=== PATIENT | female | born 1990 | race Caucasian/White ===

== ENCOUNTER 2020-08-15 19:14 | Emergency (ER) | payer OTHER ==
[2020-08-15 22:10] LABS: HEMOGLOBIN 10.2 gm/dl (12.3-15.3); RED BLOOD COUNT 4.86 M/UL (4.00-5.10); WHITE BLOOD COUNT 11.2 K/UL (4.5-11.0)
[2020-08-15 22:29] LABS: BUN/CREATININE RATIO 24 (0-10)
== END 2020-08-16 | disposition home or self-care (01) ==
LOC: ER1 19:14
PROVIDERS: Emergency Medicine
DX: R10.2 Pelvic and perineal pain (principal)
CPT/HCPCS: 76830; 80053; 81001; 83690; 85025; 99284

== ENCOUNTER → 2021-03-23 | Outpatient (CLI) | payer OTHER ==
[~2021-03-23] MED LIST: HEMOCYTE324 MG PO; IBUPROFEN800 MG PO; LYSTEDA650 MG PO; METFORMIN HCL1000 MG PO; PERCOCET 5/325 T1 EA PO
[2021-03-23 12:43] LABS: HEMOGLOBIN 12.9 gm/dl (12.3-15.3); RED BLOOD COUNT 4.59 M/UL (4.00-5.10); WHITE BLOOD COUNT 7.4 K/UL (4.5-11.0)
== END ==
LOC: OPSV2 03-21 09:00
PROVIDERS: Obstetrics & Gynecology
DX: Z01.812 Encounter for preprocedural laboratory examination (principal); Z20.822 Contact with and (suspected) exposure to COVID-19; N93.9 Abnormal uterine and vaginal bleeding, unspecified
CPT/HCPCS: 36415; 81001; 84702; 85025; U0002

== ENCOUNTER → 2021-03-24 | Day surgery (SDC) | payer OTHER | END | disposition home or self-care (01) | LOC: OR 11:22 | DX: N92.0 Excessive and frequent menstruation with regular cycle (principal); K76.0 Fatty (change of) liver, not elsewhere classified; E06.3 Autoimmune thyroiditis; E28.2 Polycystic ovarian syndrome; Z68.44 Body mass index [BMI] 60.0-69.9, adult; Z20.822 Contact with and (suspected) exposure to COVID-19; Z88.6 Allergy status to analgesic agent; Z87.891 Personal history of nicotine dependence; Z88.1 Allergy status to other antibiotic agents; Z79.84 Long term (current) use of oral hypoglycemic drugs; Z91.018 Allergy to other foods | CPT/HCPCS: J0690; J1100; J1170; J1885; J2001; J2250; J2405; J2704; J3010; J7030; J7120 ==